=== PATIENT | male | born 1950 | race Caucasian/White ===

== ENCOUNTER 2017-08-15 19:18 | Inpatient (IN) | payer OTHER, MEDICARE ==
[~2017-08-15 19:18] MED LIST: ASPI81 PO; DOXY100T PO; LIPI40TA PO; PRIN5TAB PO
--- NOTE | 2017-08-15 19:45 | PD ---
HPI Chief Complaint: syncope Time Seen by Provider: 19:32 Travel History International Travel<30 days: No Contact w/Intl Traveler<30days: No History of Present Illness HPI The patient is a 67 year old male who presents to the [facility] emergency department with a history of reportedly developing cough, congestion that began on Tuesday, 2 days ago. The patient reports that his cough has been productive of yellow sputum. The patient was seen by his primary care physician in the office earlier today. The patient was diagnosed with a viral upper respiratory infection and instructed regarding symptom control measures. He denies having any testing done for influenza. He reports that he did receive his influenza vaccination this season. The patient was instructed to take Tylenol for body aches or fever and was also given a codeine cough syrup for cough. The patient reports that he took a codeine cough syrup at 5 PM, followed by Tylenol which he later found out was Tylenol PM at 5:30 PM. He reports that he was attempting to go to bed when he was walking and suddenly felt lightheaded. The patient had a brief episode of syncope. The patient was able to be eased to the ground by his family. The patient denies having any injuries associated with this. The patient reports that over the last hour he has had chest pain along the lower chest wall bilaterally that he associates with his diaphragm. He reports that it is improved with belching. He does report having a history of coronary artery disease. He reports that he had a triple bypass done in 2005. He reports that his last stress test was over a year ago. His pmp certified project manager is Dr. Jacobs. A review of systems otherwise, the patient reports that he did have a subjective fever on Tuesday. He denies any neck pain, abdominal pain, vomiting, diarrhea, urinary symptoms, or neurologic symptoms. He reports that he had an episode of nausea with diaphoresis prior to the syncopal event. 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, history of hyperlipidemia Arthritis: Yes Asthma: No Heart Rhythm Problems: No Cancer: No Cardiovascular Problems: Yes High Cholesterol: Yes Chest Pain: No Congestive Heart Failure: No COPD: No Cerebrovascular Accident: No Diabetes: No Endocrine: No GERD: No Genitourinary: No Hiatal Hernia: No Hypertension: Yes Kidney Stones: No Musculoskeletal: No Neurologic: No Psychiatric: No Reproductive: No Respiratory: No Migraines: No Renal Failure: No Seizures: No Sleep Apnea: No Thyroid Disease: No Ulcer: No Past Surgical History Narrative Surgical The patient's past surgical history is significant for artery bypass grafting in September 2005, history of cholecystectomy, and tonsillectomy Abdominal Surgery: Yes (s/p [email or web address]) Cardiac Surgery: Yes (see above) Cholecystectomy: Yes Coronary Artery Bypass Graft: Yes (09-21-05 ) Ear Surgery: No Endocrine Surgery: No Eye Surgery: No Genitourinary Surgery: No Gynecologic Surgery: No Oral Surgery: No Thoracic Surgery: No Tonsillectomy: Yes Other Surgery: Yes Social History Alcohol Use: No Tobacco Use: No Substance Use: No Allergies-Medications (Allergen,Severity, Reaction): Coded Allergies: No Known Allergies (Verified Allergy, Unknown, 08/15/17) Reported Meds & Prescriptions Reported Meds & Active Scripts Active Reported Cheratussin AC Liq (Guaifenesin-Codeine Liq) 100-10 Mg/5 Ml Syrp 10 Ml PO Q4H PRN Do not exceed 6 doses/24 hrs. Mucinex DM (Dextromethorphan-Guaifenesin) 30-600 Mg Tab 1 Tab PO BID PRN Hydrochlorothiazide 25 Mg Tab 25 Mg PO BID Atorvastatin (Atorvastatin Calcium) 80 Mg Tab 80 Mg PO HS Ezetimibe 10 Mg Tab 10 Mg PO DAILY Review of Systems Except as stated in HPI: all other systems reviewed are Neg General / Constitutional: Positive: Fever, Chills Eyes: No: Visual changes HENT: Positive: Rhinorrhea, Congestion, No: Headaches Cardiovascular: Positive: Chest Pain or Discomfort, Diaphoresis, Dyspnea on exertion Respiratory: Positive: Cough, No: Shortness of Breath Gastrointestinal: Positive: Nausea, No: Vomiting, Diarrhea, Abdominal Pain Genitourinary: No: Dysuria Musculoskeletal: No: Pain Skin: No Rash Neurologic: No: Weakness, Focal Abnormalities, Change in Mentation, Slurred Speech, Sensory Disturbance Psychiatric: No: Depression Endocrine: No: Polydipsia Hematologic/Lymphatic: No: Easy Bruising Physical Exam Narrative General: The patient is a well-developed well-nourished male in no acute distress. Head and Neck exam: Head is normocephalic atraumatic. Eyes: EOMI, pupils are equal round and reactive to light. Nose: Midline septum with pink mucous membranes Mouth: Dentition unremarkable. Moist mucus membranes. Posterior oropharynx is not erythematous. No tonsillar hypertrophy. Uvula midline. Airway patent. Neck: No palpable lymphadenopathy. No nuchal rigidity. No thyromegaly. Cardiovascular: Regular rate and rhythm without murmurs, gallops, or rubs. Lungs: Clear to auscultation bilaterally. No wheezes, rhonchi, or rales. The patient has a frequent dry sounding cough on examination. Abdomen: Soft, without tenderness to palpation in all 4 quadrants of the abdomen. No guarding, rebound, or rigidity. Normal bowel sounds are audible. No tenderness on palpation of McBurney's point. Extremities: No clubbing, cyanosis, or edema. 2+ pulses in all 4 extremities. Calf tenderness on palpation. Back: No spinous process tenderness to palpation. No costovertebral angle tenderness to palpation. Neurologic Exam: Grossly nonfocal. Skin Exam: No rash noted. Intact skin that is warm and dry. Data Data Last Documented VS Vital Signs Date Time Temp Pulse Resp B/P (MAP) Pulse Ox O2 Delivery O2 Flow Rate FiO2 08/15/17 20:42 97.6 70 18 136/74 (94) 98 Nasal Cannula 2.00 Orders Orders Electrocardiogram (08/15/17 19:44) Complete Blood Count With Diff (08/15/17 19:44) Comprehensive Metabolic Panel (08/15/17 19:44) Creatine Kinase (Cpk) (08/15/17 19:44) Ckmb (Isoenzyme) Profile (08/15/17 19:44) Troponin I (08/15/17 19:44) B-Type Natriuretic Peptide (08/15/17 19:44) Prothrombin Time / Inr (Pt) (08/15/17 19:44) Act Partial Throm Time (Ptt) (08/15/17 19:44) C-Reactive Protein (Crp) (08/15/17 19:44) Lipase (08/15/17 19:44) Urinalysis - C+S If Indicated (08/15/17 19:44) D-Dimer (08/15/17 19:44) Magnesium (Mg) (08/15/17 19:44) Chest, Single Ap (08/15/17 19:44) Ct Brain W/O Iv Contrast(Rout) (08/15/17 19:44) Iv Access Insert/Monitor (08/15/17 19:44) Ecg Monitoring (08/15/17 19:44) Oximetry (08/15/17 19:44) Influenzae A/B Antigen (08/15/17 19:55) Sodium Chlor 0.9% 1000 Ml Inj (Ns 1000 M (08/15/17 21:00) CKMB (08/15/17 20:00) CKMB% (08/15/17 20:00) Magnesium Sulfate 1 Gm Premix (Magnesium (08/15/17 21:45) Potassium Chloride Eff (K-Lyte Cl Eff) (08/15/17 21:45) Ondansetron Inj (Zofran Inj) (08/15/17 21:45) Calcium Chloride Inj (Calcium Chloride I (08/15/17 21:45) Potassium Chlor 20 Meq Premix (Kcl 20 Me (08/15/17 21:45) Ct Pulmonary Angiogram (08/15/17 22:08) Admit To Inpatient (08/15/17 ) Vital Signs (Adult) Q4H (08/15/17 22:06) Activity Oob With Assistance (08/15/17 22:06) Litigation Partner / Telemetry .CONTINUOUS (08/15/17 22:06) Diet Heart Healthy (08/16/17 Breakfast) Sodium Chloride 0.9% Flush (Ns Flush) (08/15/17 22:15) Sodium Chloride 0.9% Flush (Ns Flush) (08/16/17 09:00) Basic Metabolic Panel (Bmp) (08/16/17 06:00) Complete Blood Count With Diff (08/16/17 06:00) Pt Request For Service (08/15/17 22:06) Case Management Consult (08/15/17 22:06) Naloxone Inj (Narcan Inj) (08/15/17 22:15) Inpatient Certification (08/15/17 ) Magnesium (Mg) (08/16/17 06:00) ^ Other Nursing Orders (08/15/17 22:06) Potassium Chlor 20 Meq Premix (Kcl 20 Me (08/15/17 23:00) Admit Order (Ed Use Only) (08/15/17 22:12) Labs Laboratory Tests Test 08/15/17 20:00 White Blood Count 6.5 TH/MM3 Red Blood Count 4.45 MIL/MM3 Hemoglobin 13.9 GM/DL Hematocrit 38.8 % Mean Corpuscular Volume 87.3 FL Mean Corpuscular Hemoglobin 31.3 PG Mean Corpuscular Hemoglobin Concent 35.8 % Red Cell Distribution Width 13.4 % Platelet Count 175 TH/MM3 Mean Platelet Volume 9.0 FL Neutrophils (%) (Auto) 71.6 % Lymphocytes (%) (Auto) 13.8 % Monocytes (%) (Auto) 12.1 % Eosinophils (%) (Auto) 2.0 % Basophils (%) (Auto) 0.5 % Neutrophils # (Auto) 4.6 TH/MM3 Lymphocytes # (Auto) 0.9 TH/MM3 Monocytes # (Auto) 0.8 TH/MM3 Eosinophils # (Auto) 0.1 TH/MM3 Basophils # (Auto) 0.0 TH/MM3 CBC Comment DIFF FINAL Differential Comment Prothrombin Time 10.6 SEC Prothromb Time International Ratio 1.0 RATIO Activated Partial Thromboplast Time 24.7 SEC D-Dimer Quantitative (PE/DVT) 0.77 MG/L FEU Blood Urea Nitrogen 9 MG/DL Creatinine 0.52 MG/DL Random Glucose 85 MG/DL Total Protein 5.4 GM/DL Albumin 2.8 GM/DL Calcium Level 6.7 MG/DL Magnesium Level 1.8 MG/DL Alkaline Phosphatase 81 U/L Aspartate Amino Transf (AST/SGOT) 111 U/L Alanine Aminotransferase (ALT/SGPT) 61 U/L Total Bilirubin 1.2 MG/DL Sodium Level 130 MEQ/L Potassium Level 2.5 MEQ/L Chloride Level 98 MEQ/L Carbon Dioxide Level 22.5 MEQ/L Anion Gap 10 MEQ/L Estimat Glomerular Filtration Rate 158 ML/MIN Protein Corrected Calcium 7.5 MG/DL Total Creatine Kinase 340 U/L Creatine Kinase MB 2.7 NG/ML Creatine Kinase MB % 0.8 % Troponin I 0.03 NG/ML C-Reactive Protein 1.10 MG/DL B-Type Natriuretic Peptide 19 PG/ML Lipase 95 U/L MDM Medical Decision Making Medical Screen Exam Complete: Yes Emergency Medical Condition: Yes Medical Record Reviewed: Yes Interpretation(s) Last Impressions CT Angiography 1/8/18 2208 Signed Impressions: Service Date/Time: Tuesday, August 15, 2017 22:31 - CONCLUSION: Normal examination except trace pleural effusions. Neftali Cueva MD Head CT 08/15/171943 Signed Impressions: Service Date/Time: Tuesday, August 15, 2017 20:40 - CONCLUSION: Normal examination except for benign sinus disease left greater than right in the maxillary sinuses. Neftali Cueva MD Chest X-Ray 08/15/171943 Signed Impressions: Service Date/Time: Tuesday, August 15, 2017 19:56 - CONCLUSION: Normal examination. Multiple sternal wires Neftali Cueva MD Differential Diagnosis Hypoglycemia, versus orthostasis, versus medication side effect, versus cardiac arrhythmia, versus acute coronary syndrome, versus influenza Narrative Course During the course of the patients emergency department visit, the patients history, examination, and differential diagnosis were reviewed with the patient. The patient was placed on a satellite project site monitor with oximetry and frequent blood pressure monitoring. The patient had IV access obtained and blood work sent for analysis. The patient had an ECG done on arrival. The patient's ECG reveals a sinus rhythm heart rate is 75, left anterior fascicular block QRS duration is 112 ms, QTC [address] segment elevation. The patient was initially provided normal saline 1 L IV fluid bolus. The patients laboratory studies were reviewed and remarkable for a white count of 6.5, hemoglobin 13.9, platelets 175 with 71.6 neutrophils, monocytes 12.1, CMP is remarkable for a sodium of 1:30, potassium 2.5, creatinine 0.52, protein corrected calcium 7.5, total bilirubin 1.2, AST 111, CPK 340, MB percent 0.8, troponin I 0.03, C-reactive protein 1.10, BNP 19, lipase 95, PT PTT within normal limits, d-dimer elevated at 0.77, CTA to rule out PE was ordered. Urinalysis shows 10 ketones otherwise unremarkable Radiology studies were reviewed and remarkable for a chest x-ray that shows no acute cardiopulmonary disease. CTA to rule out PE was negative. At approximately 8:40 PM, the patient had an episode of near-syncope. The patient was speaking to his daughter when suddenly he became diaphoretic, nauseated, and was moving his mouth but no words were coming out. We were emergently called back into the room, the patient was noted to be diaphoretic, pulse in the 40s. Pacer pads were applied to the patient's chest. 2 L nasal cannula O2 was applied to the patient her supplemental oxygen although his O2 saturations remained in the high 90s. The patient was laced with the head of the bed flat. Normal saline bolus was started. The patient reported feeling improved. Influenza A was positive. The patient was given Tamiflu. The patients results were discussed with the patient, including the plan of care. I explained that further testing and/ or monitoring is indicated based on the patients history, examination, and/ or laboratory findings. Therefore, I recommended admission for additional evaluation. The patient expressed understanding and was agreeable with this plan. The patient was admitted to the hospital in guarded condition and sent to a bed under the care of the [facility]. Physician Communication Physician Communication The patient's case including history, pertinent physical examination findings, and laboratory studies were discussed with Dr. Nguyen. It was agreed that the patient would be admitted to the [facility] service. Diagnosis Primary Impression: Syncope Qualified Codes: R55 - Syncope and collapse Additional Impressions: Hypocalcemia Hypokalemia Influenza A Admitting Information Admitting Physician Requests: Admit Berna Manuel MD Aug 15, 2017 19:45
--- NOTE | 2017-08-15 20:06 | RADRPT ---
EXAM DATE/TIME: 08/15/2017 19:56 [facility] COMPARISON: No previous studies available for comparison. INDICATIONS : Syncope MEDICAL HISTORY : Hypertension. SURGICAL HISTORY : CABG. ENCOUNTER: Initial ACUITY: 2 days PAIN SCORE: 0/10 LOCATION: chest FINDINGS: A single view of the chest demonstrates the lungs to be symmetrically aerated without evidence of mas s, infiltrate or effusion. The cardiomediastinal contours are unremarkable. Osseous structures are intact. CONCLUSION: Normal examination. Multiple sternal wires Neftali Cueva MD on August 15, 2017 at 20:03 Board Certified Radiologist. This report was verified electronically.
[2017-08-15 20:19] VITALS: BP 136/74; PULSE 74; RESP 18; O2SAT 95
[2017-08-15] MEDS ORDERED: ATOR80TA45 PO (20:25)
[2017-08-15] MEDS ORDERED: HYDR25TA5 PO (20:25)
[2017-08-15] MEDS ORDERED: HUMIBIDDM PO (20:25)
[2017-08-15] MEDS ORDERED: EZET1TAB8 PO (20:25)
[2017-08-15] MEDS ORDERED: CHERSYP2 PO (20:25)
[2017-08-15 20:42] VITALS: BP 136/74; PULSE 70; RESP 18; TEMP 97.6; O2SAT 98
[2017-08-15 20:51] LABS: AUTOMATED NEUTROPHIL # 4.6 TH/MM3 (1.8-7.7); BASOPHIL % 0.5 % (0.0-2.0); EOSINOPHIL # 0.1 TH/MM3 (0-0.4); HEMATOCRIT 38.8 % (39.0-51.0); HEMOGLOBIN 13.9 GM/DL (13.0-17.0); LYMPH % 13.8 % (9.0-44.0); LYMPHOCYTE # 0.9 TH/MM3 (1.0-4.8); MEAN CELL VOLUME 87.3 FL (80.0-100.0); MEAN CORPUSCULAR HEMOGLOBIN 31.3 PG (27.0-34.0); MEAN CORPUSCULAR HGB CONC 35.8 % (32.0-36.0); MONO % 12.1 % (0.0-8.0); MONOCYTE # 0.8 TH/MM3 (0-0.9); NEUT % 71.6 % (16.0-70.0); PLATELET COUNT 175 TH/MM3 (150-450); RED BLOOD COUNT 4.45 MIL/MM3 (4.50-5.90); RED CELL DISTRIBUTION WIDTH 13.4 % (11.6-17.2); WHITE BLOOD COUNT 6.5 TH/MM3 (4.0-11.0)
[2017-08-15] MEDS ORDERED: SODIUM CHLOR 0.9% 1000 ML INJ 1,000 ML IV ONE (21:00)
--- NOTE | 2017-08-15 21:04 | RADRPT ---
EXAM DATE/TIME: 08/15/2017 20:40 [facility] COMPARISON: No previous studies available for comparison. INDICATIONS : Syncope today. RADIATION DOSE: 56.35 CTDIvol (mGy) MEDICAL HISTORY : Hypertension. Cardiovascular disease SURGICAL HISTORY : CABG ENCOUNTER: Initial ACUITY: 1 day PAIN SCALE: 0/10 LOCATION: Bilateral head TECHNIQUE: Multiple contiguous axial images were obtained of the head. Using automated exposure control and adj ustment of the mA and/or kV according to patient size, radiation dose was kept as low as reasonably a chievable to obtain optimal diagnostic quality images. DICOM format image data is available electro nically for review and comparison. FINDINGS: CEREBRUM: The ventricles are normal for age. No evidence of midline shift, mass lesion, hemorrhage or acute in farction. No extra-axial fluid collections are seen. POSTERIOR FOSSA: The cerebellum and brainstem are intact. The 4th ventricle is midline. The cerebellopontine angle i s unremarkable. EXTRACRANIAL: There is soft tissue within left maxillary sinus, Consistent with a benign concentric mucoperiosteal thickening. SKULL: The calvaria is intact. No evidence of skull fracture. CONCLUSION: Normal examination except for benign sinus disease left greater than right in the maxillary sinuses. Neftali Cueva MD on August 15, 2017 at 21:01 Board Certified Radiologist. This report was verified electronically.
[2017-08-15 21:07] LABS: PROTHROMBIN TIME - PATIENT 10.6 SEC (9.8-11.6)
[2017-08-15 21:08] LABS: ALBUMIN 2.8 GM/DL (3.4-5.0); BICARBONATE 22.5 MEQ/L (21.0-32.0); CALCIUM 6.7 MG/DL (8.5-10.1); CREATININE 0.52 MG/DL (0.60-1.30); MAGNESIUM 1.8 MG/DL (1.5-2.5)
[2017-08-15 21:11] LABS: D-DIMER 0.77 MG/L FEU (0.00-0.50)
[2017-08-15 21:14] LABS: C-REACTIVE PROTEIN 1.1 MG/DL (0.00-0.30); CALCIUM-PROTEIN CORRECTED 7.5 MG/DL (8.5-10.1); TOTAL BILIRUBIN ADULT 1.2 MG/DL (0.2-1.0); TOTAL PROTEIN 5.4 GM/DL (6.4-8.2); TROPONIN I 0.03 NG/ML (0.02-0.05)
[2017-08-15] MEDS ORDERED: ONDANSETRON HCL 4 MG/2 ML VIAL IV PUSH ONE (21:45)
[2017-08-15] MEDS ORDERED: MAGNESIUM SULFATE 1 GM PREMIX 100 ML IV ONE (21:45)
[2017-08-15] MEDS ORDERED: CALCIUM CHLORIDE INJ 1 GM in SODIUM CHLORIDE 0.9% INJ 100 ML IV ONE (21:45)
[2017-08-15] MEDS ORDERED: POTASSIUM CHLOR 20 MEQ PREMIX 100 ML IV ONE (21:45)
[2017-08-15] MEDS ORDERED: POTASSIUM CHLORIDE 25 MEQ EFFERVESCENT TAB PO ONE (21:45)
[2017-08-15] MEDS ORDERED: NALOXONE HCL 0.4 MG/ML AMP IV PUSH PRN (22:15)
[2017-08-15] MEDS ORDERED: SODIUM CHLORIDE 0.9% FLUSH 10 ML FLUSH IV FLUSH PRN (22:15)
[2017-08-15] MEDS ORDERED: IOHEXOL 350 MG/ML 10 ML VIAL (for RAD DIAG) IVCONTRAST ONE (22:38)
[2017-08-15 22:47] VITALS: BP 138/79; PULSE 66; RESP 18; O2SAT 97
--- NOTE | 2017-08-15 22:50 | RADRPT ---
EXAM DATE/TIME: 08/15/2017 22:31 [facility] COMPARISON: No previous studies available for comparison. INDICATIONS : Syncope. Elevated D-Dimer. IV CONTRAST: 80 cc Omnipaque 350 (iohexol) IV RADIATION DOSE: 23.38 CTDIvol (mGy) MEDICAL HISTORY : Cardiovascular disease. Hyperthyroidism. SURGICAL HISTORY : CABG ENCOUNTER: Initial ACUITY: 1 day PAIN SCALE: 0/10 LOCATION: chest TECHNIQUE: Volumetric scanning of the chest was performed using a pulmonary embolism protocol MIP images were re constructed. Using automated exposure control and adjustment of the mA and/or kV according to patien t size, radiation dose was kept as low as reasonably achievable to obtain optimal diagnostic quality images. DICOM format image data is available electronically for review and comparison. Follow-up recommendations for detected pulmonary nodules are based at a minimum on nodule size and pa tient risk factors according to Fleischner Society Guidelines. FINDINGS: PULMONARY ARTERIES: No filling defects are seen in the pulmonary arteries through the segmental level. LUNGS: There is no consolidation or pneumothorax . No concerning pulmonary nodule is visualized. PLEURAE: There is no pleural thickening except trace pleural effusion. MEDIASTINUM: There is good visualization of the great vessels of the middle mediastinum. No evidence of mediastin al or hilar adenopathy/mass. MUSCULOSKELETAL: Within normal limits for patient age. MISCELLANEOUS: The visualized upper abdominal organs demonstrate no acute abnormality. CONCLUSION: Normal examination except trace pleural effusions. Neftali Cueva MD on August 15, 2017 at 22:46 Board Certified Radiologist. This report was verified electronically.
[2017-08-15 23:19] LABS: BILIRUBIN, URINE NEG (NEG); BLOOD, URINE NEG (NEG); GLUCOSE,URINE NEG (NEG); HYALINE CAST, URINE 1 /lpf (RARE); KETONE, URINE 10 mg/dL (NEG); MUCUS URINE FEW /lpf (OCC); NITRITE,URINE NEG (NEG); PH, URINE 7.5 (5.0-8.5); SQUAMOUS EPITHELIAL CELL URINE <1 /hpf (0-5); URINE COLOR YELLOW (YELLW/STRAW); URINE LEUKOCYTE ESTERASE NEG (NEG)
[2017-08-16] VITALS (11 sets, daily range): BP systolic 125–142; BP diastolic 65–77; PULSE 56–81; RESP 16–22; TEMP 97.8–98.5; O2SAT 95–98
[2017-08-16] MEDS: POTASSIUM CHLOR 20 MEQ PREMIX 100 ML IV SCH ×2 (01:00→02:13)
[2017-08-16 04:44] LABS: AUTOMATED NEUTROPHIL # 2.4 TH/MM3 (1.8-7.7); BASOPHIL % 0.3 % (0.0-2.0); EOSINOPHIL # 0.1 TH/MM3 (0-0.4); EOSINOPHIL % 1.8 % (0.0-4.0); HEMATOCRIT 39.3 % (39.0-51.0); LYMPH % 34.2 % (9.0-44.0); LYMPHOCYTE # 1.7 TH/MM3 (1.0-4.8); MEAN CELL VOLUME 87.7 FL (80.0-100.0); MEAN CORPUSCULAR HEMOGLOBIN 31.3 PG (27.0-34.0); MEAN CORPUSCULAR HGB CONC 35.7 % (32.0-36.0); MEAN PLATELET VOLUME 8.9 FL (7.0-11.0); MONO % 14.1 % (0.0-8.0); MONOCYTE # 0.7 TH/MM3 (0-0.9); NEUT % 49.6 % (16.0-70.0); PLATELET COUNT 179 TH/MM3 (150-450); RED BLOOD COUNT 4.48 MIL/MM3 (4.50-5.90); RED CELL DISTRIBUTION WIDTH 13.7 % (11.6-17.2); WHITE BLOOD COUNT 4.9 TH/MM3 (4.0-11.0)
[2017-08-16 05:18] LABS: BICARBONATE 24.3 MEQ/L (21.0-32.0); CALCIUM 8.1 MG/DL (8.5-10.1); CREATININE 0.47 MG/DL (0.60-1.30); MAGNESIUM 2.4 MG/DL (1.5-2.5)
[2017-08-16] MEDS ORDERED: POTASSIUM CHLORIDE 20 MEQ CONTROLLED RELEASE TAB PO ONE (05:30)
[2017-08-16] MEDS ORDERED: OSELTAMIVIR PHOSPHATE 75 MG CAP PO ONE (05:30)
[2017-08-16] MEDS: SODIUM CHLORIDE 0.9% FLUSH 10 ML FLUSH IV FLUSH SCH ×2 (09:00→20:37)
[2017-08-16] MEDS ORDERED: BISACODYL 10 MG SUPP RECTAL PRN (09:15)
[2017-08-16] MEDS ORDERED: ONDANSETRON HCL 4 MG/2 ML VIAL IVP PRN (09:15)
[2017-08-16] MEDS ORDERED: MAGNESIUM HYDROXIDE SUSP 30 ML CUP PO PRN (09:15)
[2017-08-16] MEDS ORDERED: NALOXONE HCL 0.4 MG/ML AMP IV PUSH PRN (09:15)
[2017-08-16] MEDS ORDERED: ACETAMINOPHEN 325 MG TAB PO PRN ×2 (09:15)
[2017-08-16] MEDS ORDERED: LACTULOSE SYRUP 20 GM/30 ML CUP PO PRN (09:15)
[2017-08-16] MEDS ORDERED: SENNOSIDES 8.6 MG TAB PO PRN (09:15)
--- NOTE | 2017-08-16 11:22 | HHI.HP ---
[facility] Tree Condon DO Admission Diagnosis syncope, electrolyte derangements Diagnoses: Chief Complaint: Syncope Travel History International Travel<30 Days: No Contact w/Intl Traveler <30 Da: No Traveled to Known Affected Are: No History of Present Illness This is a 67-year-old male with a history of coronary artery disease status post bypass, hypertension, hyperlipidemia and intracranial hemorrhage. Started 2 days ago when he developed URI symptoms with cough and nasal congestion. He also complained of lower back pain whenever he coughs. Patient Also Reported Atypical Chest Pain [place] like Gas Improved with Burping. It Was Not Exertional. He saw his primary care physician earlier yesterday and was diagnosed with viral syndrome and recommended supportive treatment. He took 2 doses of cough medicine containing Codeine. Today He Became Dizzy When He Stood up and Passed out for Few Minutes. No Seizure Activity or Confusion. In the Emergency Room He Had Another Episode of Syncope and Was Noted to Have a Heart Rate of 40. At That Time Patient Was on the [place] without Pain. At This Time He Feels Much Better. Seen with Family. All Other Systems Reviewed Negative Review of Systems Except as stated in HPI: all other systems reviewed are Neg Past Family Social History Past Medical History As previously mentioned Past Surgical History As previously mentioned. Cholecystectomy and tonsillectomy Reported Medications Reported Meds & Active Scripts Active Reported Cheratussin AC Liq (Guaifenesin-Codeine Liq) 100-10 Mg/5 Ml Syrp 10 Ml PO Q4H PRN Do not exceed 6 doses/24 hrs. Mucinex DM (Dextromethorphan-Guaifenesin) 30-600 Mg Tab 1 Tab PO BID PRN Hydrochlorothiazide 25 Mg Tab 25 Mg PO BID Atorvastatin (Atorvastatin Calcium) 80 Mg Tab 80 Mg PO HS Ezetimibe 10 Mg Tab 10 Mg PO DAILY Allergies: Coded Allergies: No Known Allergies (Verified Allergy, Unknown, 08/15/17) Family History No history of heart failure Social History Does not smoke or drink Physical Exam Vital Signs Vital Signs Date Time Temp Pulse Resp B/P (MAP) Pulse Ox O2 Delivery O2 Flow Rate FiO2 08/16/17 08:00 97.8 66 18 131/72 (91) 98 08/16/17 06:03 78 18 142/76 (98) 95 Nasal Cannula 2.00 08/16/17 04:16 56 18 126/77 (93) 97 08/16/17 00:48 58 18 125/75 (92) 95 Room Air 08/15/17 22:47 66 18 138/79 (98) 97 Room Air 08/15/17 20:42 97.6 70 18 136/74 (94) 98 Nasal Cannula 2.00 08/15/17 20:19 74 18 136/74 (94) 95 Room Air Physical Exam GENERAL: This is a well-nourished, well-developed patient, in no apparent distress. SKIN: No rashes, ecchymoses or lesions. Cool and dry. HEAD: Atraumatic. Normocephalic. No temporal or scalp tenderness. EYES: Pupils equal round and reactive. Extraocular motions intact. No scleral icterus. No injection or drainage. ENT: Nose without bleeding, purulent drainage or septal hematoma. Throat without erythema, tonsillar hypertrophy or exudate. Uvula midline. Airway patent. NECK: Trachea midline. No JVD or lymphadenopathy. Supple, nontender, no meningeal signs. CARDIOVASCULAR: Regular rate and rhythm without gallops, or rubs. Slight systolic murmur RESPIRATORY: Clear to auscultation. Breath sounds equal bilaterally. No wheezes , rales, or rhonchi. GASTROINTESTINAL: Abdomen soft, non-tender, nondistended. No guarding. MUSCULOSKELETAL: Extremities without clubbing, cyanosis, or edema. No joint tenderness, effusion, or edema noted. No calf tenderness. Negative Homans sign bilaterally. NEUROLOGICAL: Awake and alert. Cranial nerves II through XII intact. Motor and sensory grossly within normal limits. Five out of 5 muscle strength in all muscle groups. Normal speech. Laboratory Laboratory Tests Test 08/15/17 20:00 08/15/17 22:36 08/16/17 04:09 White Blood Count 6.5 4.9 Red Blood Count 4.45 4.48 Hemoglobin 13.9 14.0 Hematocrit 38.8 39.3 Mean Corpuscular Volume 87.3 87.7 Mean Corpuscular Hemoglobin 31.3 31.3 Mean Corpuscular Hemoglobin Concent 35.8 35.7 Red Cell Distribution Width 13.4 13.7 Platelet Count 175 179 Mean Platelet Volume 9.0 8.9 Neutrophils (%) (Auto) 71.6 49.6 Lymphocytes (%) (Auto) 13.8 34.2 Monocytes (%) (Auto) 12.1 14.1 Eosinophils (%) (Auto) 2.0 1.8 Basophils (%) (Auto) 0.5 0.3 Neutrophils # (Auto) 4.6 2.4 Lymphocytes # (Auto) 0.9 1.7 Monocytes # (Auto) 0.8 0.7 Eosinophils # (Auto) 0.1 0.1 Basophils # (Auto) 0.0 0.0 CBC Comment DIFF FINAL DIFF FINAL Differential Comment Prothrombin Time 10.6 Prothromb Time International Ratio 1.0 Activated Partial Thromboplast Time 24.7 D-Dimer Quantitative (PE/DVT) 0.77 Blood Urea Nitrogen 9 8 Creatinine 0.52 0.47 Random Glucose 85 88 Total Protein 5.4 Albumin 2.8 Calcium Level 6.7 8.1 Magnesium Level 1.8 2.4 Alkaline Phosphatase 81 Aspartate Amino Transf (AST/SGOT) 111 Alanine Aminotransferase (ALT/SGPT) 61 Total Bilirubin 1.2 Sodium Level 130 131 Potassium Level 2.5 3.9 Chloride Level 98 100 Carbon Dioxide Level 22.5 24.3 Anion Gap 10 7 Estimat Glomerular Filtration Rate 158 177 Protein Corrected Calcium 7.5 Total Creatine Kinase 340 Creatine Kinase MB 2.7 Creatine Kinase MB % 0.8 Troponin I 0.03 C-Reactive Protein 1.10 B-Type Natriuretic Peptide 19 Lipase 95 Urine Color YELLOW Urine Turbidity CLEAR Urine pH 7.5 Urine Specific [place] 1.012 Urine Protein NEG Urine Glucose (UA) NEG Urine Ketones 10 Urine Occult Blood NEG Urine Nitrite NEG Urine Bilirubin NEG Urine Urobilinogen LESS THAN 2.0 Urine Leukocyte Esterase NEG Urine RBC 1 Urine WBC LESS THAN 1 Urine Squamous Epithelial Cells <1 Urine Hyaline Casts 1 Urine Mucus FEW Microscopic Urinalysis Comment CULT NOT INDICATED Date/Time Source Procedure Growth Status 08/15/17 20:10 Nasal Aspirate Influenza Types A,B Antigen ([facility]UMTAZ) - Final Positive For Flu A Antigen Complete Result Diagram: 08/16/179 08/16/[address] Angiography 08/15/172207 Signed Impressions: Service Date/Time: Tuesday, August 15, 2017 22:31 - CONCLUSION: Normal examination except trace pleural effusions. Neftali Cueva MD Head CT 08/15/171943 Signed Impressions: Service Date/Time: Tuesday, August 15, 2017 20:40 - CONCLUSION: Normal examination except for benign sinus disease left greater than right in the maxillary sinuses. Neftali Cueva MD Chest X-Ray 08/15/171943 Signed Impressions: Service Date/Time: Tuesday, August 15, 2017 19:56 - CONCLUSION: Normal examination. Multiple sternal wires MD Vincenzo Koroma VTE Risk Assessment Caprini VTE Risk Assessment: Mod/High Risk (score >= 2) Caprini Risk Assessment Model Point Value = 1 Point Value = 2 Point Value = 3 Point Value = 5 Age 41-60 Minor surgery BMI > 25 kg/m2 Swollen legs Varicose veins or History of unexplained or recurrent spontaneous Oral contraceptives or hormone replacement Sepsis (< 1 month) Serious lung disease, including pneumonia (< 1 month) Abnormal pulmonary function Acute myocardial infarction Congestive heart failure (< 1 month) History of inflammatory bowel disease Medical patient at bed rest Age 61-74 Arthroscopic surgery Major open surgery (> 45 min) Laparoscopic surgery (> 45 min) Malignancy Confined to bed (> 72 hours) Immobilizing plaster cast Central venous access Age >= 75 History of VTE Family history of VTE Factor V Leiden Prothrombin [id number] Lupus anticoagulant Anticardiolipin antibodies Elevated serum homocysteine Heparin-induced thrombocytopenia Other congenital or acquired thrombophilia Stroke (< 1 month) Elective arthroplasty Hip, pelvis, or leg fracture Acute spinal cord injury (< 1 month) Prophylaxis Regimen Total Risk Factor Score Risk Level Prophylaxis Regimen 0-1 Low Early ambulation 2 Moderate Order ONE of the following: *Sequential Compression Device (SCD) *Heparin 5000 units SQ BID 3-4 Higher Order ONE of the following medications: *Heparin 5000 units SQ TID *Enoxaparin/Lovenox 40 mg SQ daily (WT < 150 kg, CrCl > 30 mL/min) *Enoxaparin/Lovenox 30 mg SQ daily (WT < 150 kg, CrCl > 10-29 mL/min) *Enoxaparin/Lovenox 30 mg SQ BID (WT < 150 kg, CrCl > 30 mL/min) AND/OR *Sequential Compression Device (SCD) 5 or more Highest Order ONE of the following medications: *Heparin 5000 units SQ TID (Preferred with Epidurals) *Enoxaparin/Lovenox 40 mg SQ daily (WT < 150 kg, CrCl > 30 mL/min) *Enoxaparin/Lovenox 30 mg SQ daily (WT < 150 kg, CrCl > 10-29 mL/min) *Enoxaparin/Lovenox 30 mg SQ BID (WT < 150 kg, CrCl > 30 mL/min) AND *Sequential Compression Device (SCD) Assessment and Plan Problem List: (1) Syncope ICD Code: R55 - Syncope and collapse Status: Acute (2) Influenza A ICD Code: J10.1 - Influenza due to other identified influenza virus with other respiratory manifestations Status: Acute Assessment and Plan This is a 67-year-old male who presented with dizziness followed by syncope and URI sxs for 2 days. Also with pleuritic back pain and atypical chest pain. In the Emergency Room He Had Another Episode of Syncope and Was Noted to Have a Heart Rate of 40. Syncope likely secondary to dehydration. He is not orthostatic. Patient noted to have heart rate of 40 in the emergency department when he developed second episode of syncope. Currently nonfocal. Monitor on telemetry. Consult patient 's outcomes specialist for symptomatic bradycardia Influenza. Continue Tamiflu. Doppler precautions Atypical chest pain. CTA negative for PE. Cardiac enzymes negative. Likely musculoskeletal versus GI Mild hyponatremia and hypokalemia likely related to hydrochlorothiazide. Asymptomatic. Patient received potassium supplementation and repeat potassium is within normal limits. We'll continue to monitor Elevated AST likely secondary to statin. We'll hold statin and monitor Chronic medical conditions of coronary artery disease status post bypass, hypertension, hyperlipidemia and intracranial hemorrhage. Continue outpatient medications as appropriate DVT prophylaxis with SCD and Lovenox Discussed Condition With Patient and family Problem Qualifiers (1) Syncope: Qualified Codes: R55 - Syncope and collapse Joon Jones MD Aug 16, 2017 11:22
[2017-08-16] MEDS: ENOXAPARIN SODIUM 40 MG/0.4 ML SYRINGE SQ SCH (12:24)
[2017-08-16] MEDS: NS + KCL 20 MEQ INJ 1,000 ML IV SCH ×3 (12:26→23:51)
--- NOTE | 2017-08-16 15:08 | EKG ---
Date Performed: 08/15/2017 Time Performed: 20:08:07 PTAGE: 67 years EKG: Sinus rhythm POSSIBLE LEFT ATRIAL ENLARGEMENT PATTERN CONSISTENT WITH PULMONARY DISEASE LEFT ANTERIOR FASCICULAR BLOCK ABNORMAL ECG PREVIOUS TRACING : 02/15/2012 11.35 Compared to prior tracing no significant change DOCTOR: Rafita Booth Interpretating Date/Time 08/16/2017 15:07:40
[2017-08-16] MEDS: BENZONATATE 100 MG CAP PO PRN ×2 (15:53→23:52)
[2017-08-16] MEDS ORDERED: RESP: ALBUTEROL 2.5 MG/3 ML NEB (PRN) INH (17:30)
[2017-08-16] MEDS: OSELTAMIVIR PHOSPHATE 75 MG CAP PO SCH (20:36)
[2017-08-16] MEDS: DOCUSATE SODIUM 50 MG/SENNA 8.6 MG TAB PO SCH (20:36)
[2017-08-16] MEDS: guaiFENesin E.R. 600 MG TAB PO SCH (20:36)
--- NOTE | 2017-08-16 21:28 | MB ---
cc: LAURA JONES MD DATE OF CONSULTATION 08/16/[address] Joon Jones REASON FOR CONSULTATION I was asked by Dr. Jones to evaluate patient with syncope and bradycardia. HISTORY OF PRESENT ILLNESS Jhoan Madison is a very pleasant 67-year-old gentleman with past medical history significant for hypertension, hyperlipidemia, coronary artery disease, status post coronary artery bypass graft. He reports not feeling well over the past four days. He felt congested and had cough with scant sputum production. He saw his PMD on Tuesday and was given codeine cough medication and Mucomyst. Yesterday afternoon he developed bilateral subcostal pain, felt sick, diaphoretic, pale. He got up, walked about 10 feet and passed out. On arrival of the paramedics, he was noted to have systolic blood pressure in the 90s. In the emergency room, he was given IV fluid resuscitation. Reportedly, he had another unresponsive episode with low blood pressure and heart rate in the 40s bpm. He reports recent chest pain with exertion or at rest suggesting angina. Additionally, he has not had symptoms or orthopnea and paroxysmal nocturnal dyspnea. He has tested positive for influenza. He is interviewed and examined with his two daughters at bedside. MEDICATIONS Prior to admission, 1. Hydrochlorothiazide 2. Zetia 3. Atorvastatin 4. Mucinex. 5. Guaifenesin/Codeine cough suppressant. ALLERGIES NO KNOWN DRUG ALLERGIES. SOCIAL HISTORY He does not smoke or drink alcohol. No illicit drug use. FAMILY HISTORY No family history of premature coronary artery disease. REVIEW OF SYSTEMS As above, twelve-point review of systems reviewed and noted. PHYSICAL EXAMINATION VITAL SIGNS: Temperature 97.8, pulse 66, blood pressure 131/72, O2 sat 98%. HEENT: He is anicteric. Pupils equal, round, reactive to light and accommodation. No xanthelasmas. NECK: Flat JVD, no carotid bruits. LUNGS: Clear to auscultation. CARDIAC: Regular rate and rhythm, no murmurs, gallops or rubs. ABDOMEN: Soft and nontender. EXTREMITIES: Without peripheral edema. LABORATORY DATA WBC 4.9, hemoglobin is 14.0, hematocrit 39.3, platelet count 179,000. Sodium 130, potassium 2.5, chloride is 98, BUN nine, creatinine 0.52, calcium is 6.7. Magnesium is 1.8. Troponin is 0.03. C-reactive protein is 1.1. BNP is 19. Albumin is 2.8. TSH is 0.369. INR is 1.0. IMAGING STUDIES Chest x-ray - no cardiomegaly or congestive heart failure. CT chest - No pulmonary embolism, trace pleural effusions. IMPRESSION 1. Syncope likely secondary to combination of vasovagal reaction, volume depletion/dehydration and hypertension medications. 2. Congestion, cough and sputum production due to the flu. 3. History of coronary artery disease, no angina. 4. Hypertension, now with hypotension and orthostasis. 5. Hypokalemia PLAN 1. Hydrochlorothiazide has been discontinued. 2. Continue aggressive IV fluid resuscitation. 3. Medications reviewed. Continue same. 4. Continuous telemetry. Bradycardia may be secondary to vagal reactions. I do not think he is in need of a permanent pacemaker. 5. May need 30-day event monitor to evaluate for significant bradycardia as outpatient. 6. No further cardiac workup anticipated. 7. Hopefully can be discharged in the next 24-48 hours. Thank you for allowing me to participate in the patient's care. Thank you for this consultation. MD RINKU Moss/ /8:35 PM /9:05 PM
[2017-08-17] VITALS: BP 141/77; PULSE 70; RESP 22; TEMP 98.3; O2SAT 98
[2017-08-17 04:00] VITALS: BP 147/85; PULSE 68; RESP 18; TEMP 98.2; O2SAT 96
[2017-08-17 07:00] VITALS: PULSE 84
[2017-08-17 08:28] VITALS: BP 157/82; PULSE 69; RESP 18; TEMP 98.7; O2SAT 96
[2017-08-17 08:45] LABS: ALBUMIN 3.1 GM/DL (3.4-5.0); BICARBONATE 27.7 MEQ/L (21.0-32.0); CALCIUM 7.7 MG/DL (8.5-10.1); CREATININE 0.57 MG/DL (0.60-1.30); DIRECT BILIRUBIN ADULT 0.2 MG/DL (0.0-0.2); MAGNESIUM 2.3 MG/DL (1.5-2.5)
[2017-08-17 08:47] LABS: INDIRECT BILIRUBIN 0.3 MG/DL (0.0-0.8); TOTAL BILIRUBIN ADULT 0.5 MG/DL (0.2-1.0); TOTAL PROTEIN 6.3 GM/DL (6.4-8.2)
[2017-08-17] MEDS ORDERED: EZETIMIBE 10 MG TAB PO SCH (09:00)
[2017-08-17] MEDS: DOCUSATE SODIUM 50 MG/SENNA 8.6 MG TAB PO SCH (09:00)
[2017-08-17] MEDS: SODIUM CHLORIDE 0.9% FLUSH 10 ML FLUSH IV FLUSH SCH (09:00)
[2017-08-17] MEDS: OSELTAMIVIR PHOSPHATE 75 MG CAP PO SCH (10:00)
[2017-08-17] MEDS: guaiFENesin E.R. 600 MG TAB PO SCH (10:00)
[2017-08-17] MEDS: ENOXAPARIN SODIUM 40 MG/0.4 ML SYRINGE SQ SCH (10:01)
[2017-08-17 12:16] VITALS: BP 177/91; PULSE 72; RESP 18; TEMP 98.5; O2SAT 97
--- NOTE | 2017-08-17 12:31 | HHI.PR ---
Subjective Remarks Follow-up influenza. States he is feeling much better and wants to go home. No further chest pain. Seen with family. Discussed with RN Objective Vitals Vital Signs Date Time Temp Pulse Resp B/P (MAP) Pulse Ox O2 Delivery O2 Flow Rate FiO2 08/17/17 12:16 98.5 72 18 177/91 (119) 97 08/17/17 08:28 98.7 69 18 157/82 (107) 96 08/17/17 07:00 84 08/17/17 04:00 98.2 68 18 147/85 (105) 96 08/17/17 00:00 98.3 70 22 141/77 (98) 98 08/16/17 21:00 69 08/16/17 20:00 98.1 69 22 128/69 (88) 97 08/16/17 16:00 98.5 66 16 135/65 (88) 96 08/16/17 15:30 67 08/16/17 12:37 98.0 62 18 131/73 (92) 95 I/O 08/16/17 08/16/17 08/16/17 08/17/17 08/17/17 08/17/17 07:00 15:00 23:00 07:00 15:00 23:00 Intake Total 1410 ml Output Total 1076 ml Balance 1410 ml -1076 ml Intake IV Total 1410 ml Output Urine Total 1075 ml Stool Total 1 ml # Voids 2 # Bowel Movements 0 Result Diagram: 08/16/17 0409 08/17/17 [address] Angiography 08/15/178 Signed Impressions: Service Date/Time: Tuesday, August 15, 2017 22:31 - CONCLUSION: Normal examination except trace pleural effusions. Neftali Cueva MD Head CT 08/15/171943 Signed Impressions: Service Date/Time: Tuesday, August 15, 2017 20:40 - CONCLUSION: Normal examination except for benign sinus disease left greater than right in the maxillary sinuses. Neftali Cueva MD Chest X-Ray 08/15/171943 Signed Impressions: Service Date/Time: Tuesday, August 15, 2017 19:56 - CONCLUSION: Normal examination. Multiple sternal wires Neftali Cueva MD Objective Remarks GENERAL: This is a well-nourished, well-developed patient, in no apparent distress. SKIN: No rashes, ecchymoses or lesions. Cool and dry. CARDIOVASCULAR: Regular rate and rhythm without gallops, or rubs. Slight systolic murmur RESPIRATORY: Clear to auscultation. Breath sounds equal bilaterally. No wheezes , rales, or rhonchi. GASTROINTESTINAL: Abdomen soft, non-tender, nondistended. No guarding. MUSCULOSKELETAL: Extremities without clubbing, cyanosis, or edema. No joint tenderness, effusion, or edema noted. No calf tenderness. Negative Homans sign bilaterally. NEUROLOGICAL: Awake and alert. Cranial nerves II through XII intact. Motor and sensory grossly within normal limits. Five out of 5 muscle strength in all muscle groups. Normal speech. Procedures none A/P Problem List: (1) Syncope ICD Code: R55 - Syncope and collapse Status: Acute (2) Influenza A ICD Code: J10.1 - Influenza due to other identified influenza virus with other respiratory manifestations Status: Acute Assessment and Plan This is a 67-year-old male who presented with dizziness followed by syncope and URI sxs for 2 days. Also with pleuritic back pain and atypical chest pain. In the Emergency Room He Had Another Episode of Syncope and Was Noted to Have a Heart Rate of 40. Syncope. He is not orthostatic. Patient noted to have heart rate of 40 in the emergency department when he developed second episode of syncope. Currently nonfocal. Monitor on telemetry. Per patient's rubber heel and sole press tender, likely vasovagal reaction. Follow-up outpatient with 30 day event monitor. No driving Influenza. Stable. Continue Tamiflu. Droplet precautions Atypical chest pain. CTA negative for PE. Cardiac enzymes negative. Likely musculoskeletal versus GI Mild hyponatremia and hypokalemia likely related to hydrochlorothiazide. Asymptomatic. Patient received potassium supplementation and repeat potassium is within normal limits. We'll continue to monitor Elevated AST likely secondary to statin. Improving. Restart statin and closely monitor Chronic medical conditions of coronary artery disease status post bypass, hypertension, hyperlipidemia and intracranial hemorrhage. Continue outpatient medications as appropriate. Start Norvasc DVT prophylaxis with SCD and Lovenox Discharge Planning Discharge patient to home Condition on discharge: Improved Regular Diet as tolerated Ad Lou activity no driving Rx written: Albuterol, Norvasc and Tamiflu Follow-up with primary care physician and cardiology Problem Qualifiers (1) Syncope: Qualified Codes: R55 - Syncope and collapse Joon Jones MD Aug 17, 2017 12:31
[2017-08-17] MEDS ORDERED: OSEL75 PO (12:37)
[2017-08-17] MEDS ORDERED: VENTAER INH (12:37)
--- NOTE | 2017-08-17 12:37 | HHI.DCPOC ---
Discharge Care Plan Diagnosis: (1) Influenza A (2) Syncope Your Health Problems Are: Difficulty with ADL Exercise Tolerance Goals to Promote Your Health * To prevent worsening of your condition and complications * To maintain your health at the optimal level Directions to Meet Your Goals Take your medications as prescribed Follow your dietary instruction Follow activity as directed Keep your appointments as scheduled Take your immunizations and boosters as scheduled If your symptoms worsen call your PCP, if no PCP go to Urgent Care Center or Emergency Room Smoking is Dangerous to Your Health. Avoid second hand smoke Call the 24-hour hour crisis hotline for domestic abuse at Joon Jones MD Aug 17, 2017 12:37
[2017-08-17] MEDS ORDERED: AMLO5 PO (12:39)
[2017-08-17] MEDS ORDERED: amLODIPine BESYLATE 5 MG TAB PO ONE (12:45)
[2017-08-17] MEDS ORDERED: PILL SPLITTER OTHER PRN (13:30)
[2017-08-18] MEDS ORDERED: amLODIPine BESYLATE 5 MG TAB PO SCH (09:00)
== END 2017-08-17 15:29 | disposition home or self-care (01) | DRG 312 ==
LOC: NEPC 19:18 → NEDA 22:13 → NEDH 08-16 02:56 → N05A 08-16 07:53
PROVIDERS: ADMIT Internal Medicine; ATTEND Internal Medicine
DX: R55 Syncope and collapse (principal); E87.1 Hypo-osmolality and hyponatremia; I10 Essential (primary) hypertension; E86.0 Dehydration; J09.X2 Influenza due to identified novel influenza A virus with other respiratory manifestations; E83.51 Hypocalcemia; E87.6 Hypokalemia; R07.89 Other chest pain; I25.10 Atherosclerotic heart disease of native coronary artery without angina pectoris; E78.5 Hyperlipidemia, unspecified; Z95.1 Presence of aortocoronary bypass graft; R00.1 Bradycardia, unspecified; T50.2X5A Adverse effect of carbonic-anhydrase inhibitors, benzothiadiazides and other diuretics, initial encounter; R79.89 Other specified abnormal findings of blood chemistry; T46.6X5A Adverse effect of antihyperlipidemic and antiarteriosclerotic drugs, initial encounter
CPT/HCPCS: 70450; 71045; 71275; 80048; 80053; 80076; 81001; 82550; 82552; 83690; 83735; 83880; 84443; 84484; 85025; 85379; 85610; 85730; 86140; 87804; 93005; 94664; 96374; J1650; J2405; J3475; J3480; J7030; J7613; Q9967